=== PATIENT | female | born 1980 | race Caucasian/White ===

== ENCOUNTER 2017-09-04 13:45 | Emergency (ER) | payer BC ==
[2017-09-04] MEDS ORDERED: Albuterol 2.5 MG/3 ML NEB.SOL* (0.083%) INH ONE (15:14)
[2017-09-04] MEDS ORDERED: Ipratropium 0.5MG/2.5ML NEB* 0.5 MG/2.5 ML NEB.SOLN INH ONE (15:14)
--- NOTE | 2017-09-04 15:40 | RAD ---
INDICATION: Short of breath COMPARISON: None TECHNIQUE: PA and lateral dual-energy views were obtained. FINDINGS: Bones/Soft Tissues: There are no acute bony findings. Cardiomediastinal: The cardiomediastinal silhouette is normal. Lungs: There are no infiltrates. Pleura: There are no pleural effusions. Other: None IMPRESSION: NO ACTIVE DISEASE.
--- NOTE | 2017-09-04 15:57 | UC ---
Respiratory Complaint HPI - HPI Summary HPI Summary: Day 3 of cough right sides back pain - History of Current Complaint Chief Complaint: UCRespiratory Stated Complaint: COUGH,FEVER Time Seen by Provider: 09/04/17 15:04 Hx Obtained From: Patient Hx Last Menstrual Period: today ?: No Onset/Duration: Sudden Onset, Lasting Days - 3-4, Still Present Timing: Constant Severity Initially: Mild Severity Currently: Moderate Character: Cough: Nonproductive Aggravating Factors: Allergens, Recumbent Position Alleviating Factors: Nothing Associated Signs And Symptoms: Positive: Chills, Pleuritic Chest Pain, URI - Allergies/Home Medications Allergies/Adverse Reactions: Allergies Allergy/AdvReac Type Severity Reaction Status Date / Time Codeine Allergy Anaphylatic Verified 09/04/17 13:56 Shock Home Medications: Home Medications Acetaminophen TAB* [Tylenol TAB*] 650 mg PO PRN 09/04/17 [History] PMH/Surg Hx/FS Hx/Imm Hx Previously Healthy: Yes - Surgical History Surgical History: None Surgery Procedure, Year, and Place: denies - Family History Known Family History: Positive: None - Social History Occupation: Employed Full-time Lives: With Family Alcohol Use: Daily Alcohol Amount: glass of wine with dinner Substance Use Type: None Smoking Status (MU): Never Smoked Tobacco Review of Systems Constitutional: Fatigue Skin: Negative Eyes: Negative ENT: Negative Respiratory: Cough Cardiovascular: Negative Gastrointestinal: Negative Genitourinary: Negative Motor: Negative Neurovascular: Negative Musculoskeletal: Negative Neurological: Negative Psychological: Negative Is Patient Immunocompromised?: No All Other Systems Reviewed And Are Negative: Yes Physical Exam Triage Information Reviewed: Yes Appearance: Well-Appearing, No Pain Distress, Well-Nourished, Ill-Appearing Vital Signs: Initial Vital Signs Temp 98.6 F 09/04/17 13:57 Pulse 94 09/04/17 13:57 Resp 18 09/04/17 13:57 BP 139/75 09/04/17 13:57 Pulse Ox 98 09/04/17 13:57 Vital Signs Reviewed: Yes Eye Exam: Normal Eyes: Positive: Conjunctiva Clear ENT Exam: Normal ENT: Positive: Normal ENT inspection, Hearing grossly normal, Pharynx normal, TMs normal, Uvula midline. Negative: Nasal congestion, Tonsillar swelling, Tonsillar exudate, Trismus, Muffled voice, Hoarse voice, Sinus tenderness Dental Exam: Normal Neck exam: Normal Neck: Positive: Supple, Nontender, No Lymphadenopathy Respiratory Exam: Normal Respiratory: Positive: Chest non-tender, Lungs clear, Normal breath sounds, No respiratory distress, No accessory muscle use Cardiovascular Exam: Normal Cardiovascular: Positive: RRR, No Murmur, Pulses Normal, Brisk Capillary Refill Musculoskeletal Exam: Normal Musculoskeletal: Positive: Strength Intact, ROM Intact, No Edema Neurological Exam: Normal Neurological: Positive: Alert, Muscle Tone Normal Psychological Exam: Normal Skin Exam: Normal UC Diagnostic Evaluation - Laboratory O2 Sat by Pulse Oximetry: 98 - Radiology Xray Interpretation: No Acute Changes Radiology Interpretation Completed By: ED Physician, Radiologist Respiratory Course/Dx - Course Course Of Treatment: zithrmax, robitussin and codiene, albuterol MBI, increase jmy8age, rest follow PCP - Differential Dx/Diagnosis Provider Diagnoses: Acute Bronchitis Discharge - Discharge Plan Condition: Stable Disposition: HOME Prescriptions: Albuterol HFA INHALER* [Ventolin HFA Inhaler*] 2 puff INH Q4H PRN #1 mdi PRN Reason: cough Azithromycin TAB* [Zithromax TAB (Z-LEONOR) 250 mg #6 tabs] 2 tab PO .TODAY, THEN 1 DAILY #1 leonor predniSONE TAB* [Deltasone TAB*] 50 mg PO DAILY #4 tab Patient Education Materials: How to Use a Metered-Dose Inhaler (ED), Acute Bronchitis (ED) Referrals: No Primary Care Phys,NOPCP [Primary Care Provider] - If Needed
[2017-09-04 16:10] VITALS: BP 116/66
== END 2017-09-04 16:12 | disposition home or self-care (01) ==
LOC: UCEAST 13:45
DX: J20.9 Acute bronchitis, unspecified (principal); Z88.5 Allergy status to narcotic agent
CPT/HCPCS: 71020; 99212; G0463; J7644

== ENCOUNTER 2018-03-31 16:10 | Emergency (ER) | payer BC ==
[2018-03-31 16:44] LABS: ABS Basophils 0 10^3/ul (0-0.2); ABS Eosinophils 0.1 10^3/ul (0-0.6); ABS Lymphocytes 1.5 10^3/ul (1.0-4.8); ABS Monocytes 0.7 10^3/ul (0-0.8); ABS Neutrophils 6.1 10^3/ul (1.5-7.7); ABS Nucleated RBC 0 10^3/ul; Hematocrit 42 % (35-47); Lymphocyte % 18.3 % (25-47); Mean Corpuscular HGB Conc 34 g/dl (31-36); Mean Corpuscular Hemoglobin 30 pg (27-31); Mean Corpuscular Volume 90 fL (80-97); Mean Platelet Volume 7.1 um3 (7.4-10.4); Nucleated Red Blood Cells % 0.1; Platelet Count 292 10^3/ul (150-450); Red Blood Count 4.62 10^6/ul (4.00-5.40); Red Cell Distribution Width 13 % (10.5-15); White Blood Count 8.4 10^3/ul (3.5-10.8)
[2018-03-31 17:02] LABS: EGFR Non-African American 96.3 (>60)
--- OUTSIDE RECORDS SUMMARY | 2018-03-31 18:07 | XMS REPORT ---
:1980 External Reference #:[id number] Author Organization [facility] Address [address] [place] [address] Phone [phone] Care Team Providers Name Role Phone Narayan Rocha MD Care Team Information Certified Procedural Coder Unavailable Narayan Rocha MD Primary Care Physician Unavailable Payers Type Date Identification Numbers Payment Provider Subscriber Commercial Effective: Policy Number: BC/BS Of ALEXUS Andujar 2017 [id number] Group Number: [id number] [address] [address] PayID: [id number] [place] [address] Problems Date Description Provider Status Onset: 11/27/2017 Generalized anxiety disorder Narayan Rocha M.D. Active Family History Date Family Member(s) Problem(s) Comments Father Abdominal Aortic Aneurysm Father Heart Disease Maternal Grandfather [place] Social History Type Date Description Comments Education Highest level of education completed is a bachelor's degree Living Situation Lives with spouse and sons Occupation Insurance underwriting support Cigarette Use Former Cigarette Smoker 1 Pack Daily quit 6 years ago ETOH Use Social Alcohol Smoking Patient is a former smoker Daily Caffeine Rare Allergies, Adverse Reactions, Alerts Date Description Reaction Status Severity Comments 08/29/2001 Codeine active 12/16/2008 Bee Stings swellin also in the throat active Medications Medication Date Status Form Strength Qnty SIG Indications Ordering Provider Valacyclovir Active Tablets 500mg 60tabs 1 by mouth Narayan FELIX 018 every 12 Darlow, hours M.DNeha Alprazolam Active Tablets 0.25mg 30tabs 1 by mouth F41.1 Narayan A. 018 once a day Darlow, as needed M.D. for anxiety Sertraline HCL Active Tablets 25mg 60tabs take one F41.1 Narayan A. 018 by mouth Darlow, in the M.D. morning for two weeks, then increase to two tablets by mouth every morning Sertraline HCL Active Tablets 25mg 60tabs take one F41.1 Narayan A. 018 by mouth Darlow, in the M.D. morning for two weeks, then increase to two tablets by mouth every morning No Active Hx Unknown Medications 018 - 018 Celexa Hx Tablets 10mg 30tabs 1 po qd Pratibha 009 - Mariam, AFTER SCHOOL PROGRAM COORDINATOR 018 Wellbutrin XL Hx Tablets 150mg 30tabs 1 po qd 300.00 Pratibha 009 - ER 24HR Mariam, OLAYINKA 018 311 Augmentin 12/16/2008 - Hx Tablets 500mg 14tabs 1 po bid 461.9 Pratibha 11/27/2017 with food x OLAYINKA Becerra 7 days Zithromax 12/09/2008 - Hx Tablets 250mg 6Tabs 2 po qd Son T. 12/16/2008 Emily mak M.D. then 1 po qd times 4 Wellbutrin SR 11/25/2008 - Hx Tablets ER 100mg 30tabs 1 po qd 300.00 Pratibha 12/16/2008 12HR OLAYINKA Becerra Levaquin 11/10/2001 - Hx 500mg 7units 1 qd Pratibha 12/22/2001 OLAYIKNA Becerra Return To Work 11/10/2001 - Hx May Return Pratibha 12/22/2001 To Work OLAYINKA Becerra 2\\28\\02 Orthotricyclen 08/29/2001 - Hx 0units 1 PO qd Family 11/25/2008 [facility] 08/29/2001 - Hx 60mg 30units 1 PO bid Pratibha 11/25/2008 OLAYINKA Becerra Prevacid 08/29/2001 - Hx 15mg 30units 1 PO qd Pratibha 12/22/2001 OLAYINKA Becerra Zoloft - Hx Tablets 50mg 1 po qd Unknown 12/16/2008 Medications Administered in Office Medication Date Status Form Strength Qnty SIG Indications Ordering Provider TB Intradermal Administered Injection Pratibha Test 002 OLAYINKA Becerra Vital Signs Date Vital Result Comment 03/31/2018 BP Systolic 116 mmHg BP Diastolic 80 mmHg Heart Rate 70 /min Body Temperature 98.9 F Respiratory Rate 16 /min Height 64.25 inches 5'4.25" Weight 167.00 lb BMI (Body Mass Index) 28.4 kg/m2 11/27/2017 BP Systolic 110 mmHg BP Diastolic 60 mmHg Heart Rate 72 /min Body Temperature 99.6 F Respiratory Rate 16 /min Height 64.25 inches 5'4.25" Weight 166.00 lb BMI (Body Mass Index) 28.3 kg/m2 12/16/2008 BP Systolic 112 mmHg BP Diastolic 78 mmHg Heart Rate 74 /min Weight 150.00 lb 12/09/2008 BP Systolic 108 mmHg BP Diastolic 60 mmHg Heart Rate 72 /min Body Temperature 99.3 F Height 64.25 inches 5'4.25" Weight 150.00 lb BMI (Body Mass Index) 25.5 kg/m2 11/25/2008 BP Systolic 106 mmHg BP Diastolic 60 mmHg Heart Rate 68 /min Height 64.25 inches 5'4.25" Weight 152.00 lb BMI (Body Mass Index) 25.9 kg/m2 12/22/2001 BP Systolic 120 mmHg BP Diastolic 68 mmHg Heart Rate 68 /min Height 64.25 inches 5'4.25" Weight 136.00 lb BMI (Body Mass Index) 23.3 kg/m2 11/10/2001 BP Systolic 110 mmHg BP Diastolic 70 mmHg Heart Rate 100 /min Body Temperature 102.0 F Height 64.25 inches 5'4.25" Weight 134.00 lb BMI (Body Mass Index) 23.0 kg/m2 08/29/2001 BP Systolic 106 mmHg BP Diastolic 60 mmHg Heart Rate 64 /min Body Temperature 97.6 F Height 64.25 inches 5'4.25" Weight 132.50 lb BMI (Body Mass Index) 22.8 kg/m2 Results Test Date Test Result H/L Range Note Laboratory test finding 11/27/2017 TSH 1.39 mIU/L 0.50-6.00 Complete Blood Count 03/28/2009 WBC 6.9 x10^3/uL 3.6-9.6 Gran# 4.4 x10^3/uL 1.5-7.2 Gran% 63.8 % 42.2-75.2 HCT 38 % 36-50 HGB 12.8 g/dL 12.1-17.2 Lymph# 2.2 x10^3/uL 0.7-4.9 Lymph% 31.6 % 20.5-51.1 MCH 28.7 pg 27.6-33.3 MCV 84.7 fL 82.2-97.4 MCHC 33.9 g/dL 33.0-35.5 Mo# 0.3 x10^3/uL 0.1-0.9 Mo% 4.6 % 1.7-9.3 MPV 7.6 fL 7.4-10.4 PLT 304 x10^3/uL 150-400 RBC 4.47 x10^6/uL 3.90-5.70 RDW 12.8 % 11.6-13.7 Laboratory test finding 03/28/2009 Free T3 2.70 pg/mL 2.00-4.90 TSH 1.13 mIU/L 0.50-6.00 B12 1722 pg/mL High 230-1050 1 Folate 16.05 ng/mL High 3.00-16.00 Free T4 1.12 ng/dL 0.75-1.54 1 result rechecked Procedures Description No Information Encounters Type Date Location Provider CPT E/M Dx Office Visit 11/27/2017 2:00p [facility] Office Narayan Rocha M.D. 13694 F41.1 Office Visit 12/16/2008 1:00p [facility] Office OLAYINKA Norris 53881 300.00 311 461.9 Office Visit 12/09/2008 10:10a [facility] Office Son Diaz M.D. 68472 461.9 465.9 Office Visit 11/25/2008 2:00p [facility] Office OLAYINKA Norris 37230 300.00 311 Office Visit 12/22/2001 7:30p Main Office OLAYINKA Norris [address] Office Visit 11/10/2001 6:45p Main Office OLAYINKA Norris [address] Office Visit 08/29/2001 10:30a [facility] Office Pratibha Becerra, OLAYINKA [address] Plan of Care 03/31/2018 - Daniel Salas, MDR10.31 Right lower quadrant painAllComments :~B_~U_Medication Management~b_~u_ Patient Understands medications she's taking ? Yes No Are there Barriers to Adherence? Yes No Has the patient been asked about herbal supplements and therapies, and OTC meds? Yes No
--- NOTE | 2018-03-31 19:25 | ED ---
Abdominal Pain/Female - HPI Summary HPI Summary: This is lamont Hirsch Dylan documenting for attending physician James Shore M.D. Pt is a 37 y/o F w/ c/o diarrhea onsetting a week ago. She also reports sweating profusely at night but denies fever. Pt reports that she woke up yesterday morning with pain in lower abdomen alongside fatigue. She reports nausea in the morning and loss of appetite today in the morning. Pain is described as constant and rated 6/10 on triage. Pt notes that movement and time before urinating worsens abdominal pain. Diarrhea is described as watery with some pieces. Pt denies blood in stool, vomiting, and, per triage, stool is not black. She notes treatment for IBS and GERD in 2013 but reports she has not taken medications for these conditions in years. Pt denies any SHx of abdominal region. - History of Current Complaint Chief Complaint: EDAbdPain Stated Complaint: ABD PAIN Time Seen by Provider: 03/31/18 19:10 Hx Obtained From: Patient Hx Last Menstrual Period: today Onset/Duration: Lasting Days - pain onset yesterday, Lasting Weeks - diarrhea onset one week ago, Still Present Timing: Constant Severity Currently: Moderate Pain Intensity: 6 Pain Scale Used: 0-10 Numeric - 6/10 Location: Suprapubic Radiates: No Aggravating Factor(s): Movement, Other: - moments before urinating Alleviating Factor(s): Nothing Associated Signs and Symptoms: Positive: Diaphoresis, Decreased Appetite, Nausea , Diarrhea, Other: - NEGATIVE: black stool POSITIVE: fatigue. Negative: Fever, Blood in Stool, Vomiting Allergies/Adverse Reactions: Allergies Allergy/AdvReac Type Severity Reaction Status Date / Time codeine Allergy Anaphylatic Verified 03/31/18 18:28 Shock Home Medications: Home Medications Sertraline* [Zoloft*] 25 mg PO DAILY 03/31/18 [History Confirmed 03/31/18] Valacyclovir HCl [Valacyclovir] 1 tab PO DAILY PRN 03/31/18 [History Confirmed 03/31/18] PMH/Surg Hx/FS Hx/Imm Hx GI History: Reports: Hx Gastroesophageal Reflux Disease, Hx Irritable Bowel Sensory History: Denies: Hx Legally Blind - Surgical History Surgery Procedure, Year, and Place: denies Infectious Disease History: No Infectious Disease History: Denies: History Other Infectious Disease, Traveled Outside the [place] in Last 30 Days - Family History Known Family History: Negative: Blood Disorder - Social History Alcohol Use: Daily Alcohol Amount: glass of wine with dinner Substance Use Type: Reports: None Hx Tobacco Use: No Smoking Status (MU): Never Smoked Tobacco Review of Systems Positive: Fatigue, Skin Diaphoresis - sweats profusely at night . Negative: Fever Positive: Abdominal Pain - lower, Diarrhea, Nausea, Other - POSITIVE: loss of appetite NEGATIVE: black stool, blood in stool All Other Systems Reviewed And Are Negative: Yes Physical Exam - Summary Physical Exam Summary: Appearance: Well-appearing, Well-nourished, lying in bed comfortably Skin: Warm, dry, no obvious rash Eyes: sclera anicteric, no conjunctival pallor ENT: mucous membranes moist, pharynx appears normal Neck: Supple, nontender Respiratory: Clear to auscultation, no signs of respiratory distress Cardiovascular: Normal S1, S2. No murmurs. Normal distal pulses in tibial and radial bilaterally. Abdomen: Normal active bowel sounds present, tenderness in LLQ with some guarding, no rebound, Musculoskeletal: Normal, Strength/ROM Intact Neurological: A&Ox3, awake and alert, mentation is normal, speech is fluent and appropriate Psychiatric: affect is normal, does not appear anxious or depressed Triage Information Reviewed: Yes Vital Signs On Initial Exam: Initial Vitals Temp Pulse Resp BP Pulse Ox 98.1 F 80 16 131/75 98 03/31/18 16:13 03/31/18 16:13 03/31/18 16:13 03/31/18 16:13 03/31/18 16:13 Vital Signs Reviewed: Yes Diagnostics - Vital Signs Vital Signs Temp Pulse Resp BP Pulse Ox 03/31/18 19:10 65 98 03/31/18 17:59 99.9 F 76 16 132/81 98 03/31/18 16:13 98.1 F 80 16 131/75 98 - Laboratory Lab Results: Lab Results 03/31/18 03/31/18 Range/Units 16:33 16:33 WBC 8.4 (3.5-10.8) 10^3/ul RBC 4.62 (4.00-5.40) 10^6/ul Hgb 14.0 (12.0-16.0) g/dl Hct 42 (35-47) % MCV 90 (80-97) fL MCH 30 (27-31) pg MCHC 34 (31-36) g/dl RDW 13 (10.5-15) % Plt Count 292 (150-450) 10^3/ul MPV 7.1 L (7.4-10.4) um3 Neut % (Auto) 72.4 (38-83) % Lymph % (Auto) 18.3 L (25-47) % [place] % (Auto) 8.0 H (0-7) % Eos % (Auto) 1.0 (0-6) % Baso % (Auto) 0.3 (0-2) % Absolute Neuts (auto) 6.1 (1.5-7.7) 10^3/ul Absolute Lymphs (auto) 1.5 (1.0-4.8) 10^3/ul Absolute Monos (auto) 0.7 (0-0.8) 10^3/ul Absolute Eos (auto) 0.1 (0-0.6) 10^3/ul Absolute Basos (auto) 0 (0-0.2) 10^3/ul Absolute Nucleated RBC 0 10^3/ul Nucleated RBC % 0.1 Sodium 135 (135-145) mmol/L Potassium 4.5 (3.5-5.0) mmol/L Chloride 102 (101-111) mmol/L Carbon Dioxide 26 (22-32) mmol/L Anion Gap 7 (2-11) mmol/L BUN 9 (6-24) mg/dL Creatinine 0.68 (0.51-0.95) mg/dL Est GFR ( Amer) 116.6 (>60) Est GFR (Non-Af Amer) 96.3 (>60) BUN/Creatinine Ratio 13.2 (8-20) Glucose 92 (70-100) mg/dL Calcium 9.2 (8.6-10.3) mg/dL Total Bilirubin 0.60 (0.2-1.0) mg/dL AST 17 (13-39) U/L ALT 12 (7-52) U/L Alkaline Phosphatase 60 (34-104) U/L C-Reactive Protein 13.76 H (<8.01) mg/L Total Protein 7.7 (6.4-8.9) g/dL Albumin 4.3 (3.2-5.2) g/dL Globulin 3.4 (2-4) g/dL Albumin/Globulin Ratio 1.3 (1-3) Lipase 12 (11.0-82.0) U/L Beta HCG, Quant 1.10 mIU/mL Result Diagrams: 03/31/18 16:33 03/31/18 16:33 Lab Statement: Any lab studies that have been ordered have been reviewed, and results considered in the medical decision making process. - CT CT abd/pel CT Interpretation Completed By: Radiologist - There is mild wall thickening in the proximal colon which may be partly related to under distention but cannot exclude mild nonspecific colitis. No other acute CT pathology. This report was reviewed by ED physician. Re-Evaluation - Re-Evaluation First Eval Re-Evaluation Time: 21:50 Comment: Tests and results discussed with patient, informed pt will be discharged. Abdominal Pain Fem Course/Dx - Diagnoses Differential Diagnosis: Positive: Appendicitis, Diverticulitis, Irritable Bowel Syndrome, Ovarian Cyst, Other - Yanna Provider Diagnoses: Acute abdominal pain Discharge - Sign-Out/Discharge Documenting (check all that apply): Patient Departure - Discharge Plan Condition: Good Disposition: HOME Patient Education Materials: Yanna (ED), Acute Abdominal Pain (ED) Referrals: Narayan Rocha MD [Primary Care Provider] - - Billing Disposition and Condition Condition: GOOD Disposition: Home
[2018-03-31] MEDS ORDERED: Iohexol 300* (CONTRAST) 10 ML SDV IV ONE (19:44)
[2018-03-31 21:09] LABS: Urine Appearance Clear; Urine Blood Negative (Negative); Urine Color Straw; Urine Ketones Negative (Negative); Urine Protein Negative (Negative); Urine Specific Gravity 1.015 (1.010-1.030); Urine Urobilinogen Negative (Negative)
[2018-03-31 22:21] VITALS: BP 113/75
--- NOTE | 2018-04-01 07:48 | RAD ---
Indication: Lower abdominal pain. Contrast: Administered 101.3 ml of OMNIPAQUE 300 mg/ml CT of the abdomen and pelvis was performed after oral and IV contrast administration. Coronal and sagittal reconstructed images were obtained. The lung bases demonstrate no pleural fluid, nodules or masses. Heart is normal size without evidence of pericardial effusion. Liver is normal in size. No focal lesions or intrahepatic duct dilatation is noted. The gallbladder demonstrates no calcified gallstones. No pericholecystic fluid or wall thickening is identified. The common duct is not dilated. The pancreas demonstrates no mass or pancreatic duct dilatation. The spleen is normal in size. No adrenal masses are noted. The kidneys demonstrate symmetric nephrograms without focal lesions. No retroperitoneal lymphadenopathy is noted. Aorta and inferior vena cava are grossly unremarkable. No dilated loops of bowel are noted. CT of the pelvis demonstrates no retroperitoneal or pelvic lymphadenopathy. The uterus is otherwise unremarkable. Follicles are noted in both ovaries. No dilated loops of bowel are noted. Urinary bladder is otherwise unremarkable. The appendix is visualized and is normal and is lateral to the cecum. There is suggestion of some mild wall thickening of the ascending colon. This is likely due to nondistention although mild colitis is not totally excluded. No hernias are noted. The bony structures are grossly unremarkable. IMPRESSION: There is some mild equal to thickening of the ascending colon which May BE due to nondistention and adjacent fluid although underlying colitis is not totally excluded. No other masses or fluid collections are identified.
== END 2018-03-31 22:19 | disposition home or self-care (01) ==
LOC: ED 16:10
DX: R10.30 Lower abdominal pain, unspecified (principal); R19.7 Diarrhea, unspecified; K63.89 Other specified diseases of intestine; Z87.19 Personal history of other diseases of the digestive system; Z88.5 Allergy status to narcotic agent
CPT/HCPCS: 36415; 74177; 80053; 81003; 83690; 84702; 85025; 86140; 99282; Q9967